=== PATIENT | male | born 1955 | race Caucasian/White ===

== ENCOUNTER 2018-03-11 12:44 | Emergency (ER) | payer MEDICARE, SELFPAY ==
[2018-03-11 12:45] VITALS: BP 136/74; PULSE 103; RESP 16; TEMP 37.7; O2SAT 95; BMI 23.3
[2018-03-11 14:04] LABS: Mucous, Urine 0 SEEN /hpf (<or=2+)
[2018-03-11 14:05] LABS: Color, Urine Yellow (Yellow); Glucose, Dipstick Normal (Normal); Leukocyte Esterase-Dipstick 500 /ul (Negative); Nitrite-Dipstick Negative (Negative); Occult Blood-Urine 25 /ul (Negative); Protein-Dipstick 30 mg/dl (Negative); Specific Gravity, Urine 1.015 (1.002-1.030); Urine Bilirubin Dipstick Negative (Negative); Urine Clarity Sl. Cloudy (Clear); Urine Urobilinogen 1 mg/dl (Normal); Urine pH 6.5 (5.0 - 8.0)
[2018-03-11 14:07] LABS: Ketone-Dipstick 150 mg/dl (Negative)
[2018-03-11 14:15] LABS: Bacteria RARE /hpf (None Seen); Red Blood Cells-Urine 0-5 SEEN /hpf (0-5); Squamous Epithelial Cells - UA 0-5 SEEN /hpf (0-5); White Blood Cells 25-50 SEEN /hpf (0-5)
--- NOTE | 2018-03-11 14:26 | ED.VISSUMM ---
- ER Visit Summary Date of Service: 03/11/18 Chief Complaint: [Dysuria] History of Present Illness: The patient is a 62 M presents to the emergency department with complaint of dysuria that started 2 days ago. Patient complains of frequent urination, chills, subjective fever, and mild back discomfort. Patient's had no vomiting or diarrhea. Patient states he had similar symptoms a few years ago when a friend of his gave him some antibiotics and the symptoms resolved.] Physical Examination: [HEENT-PERRLA, EOMI. Cranial nerves II through XII grossly intact. TMs clear. Mucous membranes moist. No adenopathy. Cardiovascular-regular rate and rhythm without murmur or ectopy Lungs-clear to auscultation, chest wall stable without crepitus or subcu emphysema Abdomen-normoactive bowel sounds, soft. Patient has some mild suprapubic discomfort. No rebound, rigidity, or perineal signs. Extremities-intact ?4, normal range of motion, normal pulses, atraumatic] Test Results: [Bladder scan only showed about 30 cc of urine. Patient also had a urinalysis that was positive for 500 leukocyte esterase and 25-50 WBCs. Negative for nitrites.] Emergency Department Course and Treatment: [Urine culture was sent and patient started on Bactrim DS.] Treatment Plan: [Will be treated with Bactrim and Pyridium and will be referred to urology agricultural extension agent.] Disposition: [Discharged home in stable condition]. Patient advised to return if worsening pain, vomiting, dehydration, or condition should worsen in any way. Impression: [Urinary tract infection] This note was generated with [employer] dictation software. It may contain incorrect words, spelling, and punctuation that were not noted in review of the chart prior to signing ED Disposition - Plan for ED Patient: Chief Complaint: Complaint Referrals: Care Physician,No Primary [Primary Care Provider] -
--- NOTE | 2018-03-11 14:29 | ED.DCSUM_ITS ---
- ER Visit Summary Date of Service: 03/11/18 Chief Complaint: [Dysuria] History of Present Illness: The patient is a 62 M presents to the emergency department with complaint of dysuria that started 2 days ago. Patient complains of frequent urination, chills, subjective fever, and mild back discomfort. Patient's had no vomiting or diarrhea. Patient states he had similar symptoms a few years ago when a friend of his gave him some antibiotics and the symptoms resolved.] Physical Examination: [HEENT-PERRLA, EOMI. Cranial nerves II through XII grossly intact. TMs clear. Mucous membranes moist. No adenopathy. Cardiovascular-regular rate and rhythm without murmur or ectopy Lungs-clear to auscultation, chest wall stable without crepitus or subcu emphysema Abdomen-normoactive bowel sounds, soft. Patient has some mild suprapubic discomfort. No rebound, rigidity, or perineal signs. Extremities-intact ?4, normal range of motion, normal pulses, atraumatic] Test Results: [Bladder scan only showed about 30 cc of urine. Patient also had a urinalysis that was positive for 500 leukocyte esterase and 25-50 WBCs. Negative for nitrites.] Emergency Department Course and Treatment: [Urine culture was sent and patient started on Bactrim DS.] Treatment Plan: [Will be treated with Bactrim and Pyridium and will be referred to urology director of infection prevention.] Disposition: [Discharged home in stable condition]. Patient advised to return if worsening pain, vomiting, dehydration, or condition should worsen in any way. Impression: [Urinary tract infection] This note was generated with [employer] dictation software. It may contain incorrect words, spelling, and punctuation that were not noted in review of the chart prior to signing ED Disposition - Plan for ED Patient: Chief Complaint: Complaint Referrals: Care Physician,No Primary [Primary Care Provider] -
--- NOTE | 2018-03-11 14:29 | ED.DEP ---
ED Disposition - Plan for ED Patient: Chief Complaint: Complaint Instructions: ED UTI Cystitis Male Prescriptions: Smz/Tmp Ds [Bactrim Ds] 1 tab PO BID #14 tab Phenazopyridine HCl [Pyridium] 200 mg PO TID #10 tab Referrals: Care Physician,No Primary [Primary Care Provider] - Isabel Dobbs MD [STAFF PHYSICIAN] - 5-7 Days
[2018-03-11 14:33] VITALS: BP 128/80; PULSE 95; RESP 14; O2SAT 99
[2018-03-11] MEDS: Smz/Tmp Ds Tablet 1 TABLET PO (14:39)
== END 2018-03-11 14:41 | disposition home or self-care (01) ==
LOC: ED 13:23
PROVIDERS: Emergency Provider Emergency Medicine
DX: N30.90 Cystitis, unspecified without hematuria (principal); B96.89 Other specified bacterial agents as the cause of diseases classified elsewhere; I10 Essential (primary) hypertension; Z72.0 Tobacco use
CPT/HCPCS: 81001; 87086; 87088; 99283

== ENCOUNTER → 2018-04-16 09:19 | Outpatient (CLI) | payer BC, SELFPAY ==
[2018-04-16 12:13] LABS: Hematocrit 36.7 % (40-54); Hemoglobin 11.6 g/dl (13.0-16.5); Mean Corp Hgb Conc 31.6 g/gl (32-36); Mean Corpuscular Hgb 28.2 pg (27.0-32.0); Mean Corpuscular Volume 89.1 fL (80-94); Mean Platelet Vol. 11.2 fl (6.2-12.0); Platelet Count 162 K/mm3 (150-450); RBC Distribution Width CV 15.4 % (11.6-14.6); RBC Distribution Width SD 49.9 fl (35.1-43.9); Red Blood Count 4.12 M/mm3 (4.6-6.2); White Blood Count 7.5 K/mm3 (4.4-11.0)
[2018-04-16 12:37] LABS: Phenytoin (Dilantin) Level 9.5 mL (10.0-20.0)
[2018-04-16 12:43] LABS: Scan Indicated on CBC? Y/N NO
[2018-04-16 12:49] LABS: ALB/GLOB Ratio 1.1 RATIO (0.9-2.4); AST(SGOT) 13 U/L (15-37); Alanine Aminotransfer ALT/SGPT 22 U/L (16-61); Albumin, Serum 3.6 g/dL (3.2-5.0); Alkaline Phosphatase 86 U/L (45-117); Anion Gap 12 (5-15); BUN 14 mg/dL (7-18); BUN/Creat Ratio 16.2 RATIO (10-20); Calcium,Total 8.3 mg/dL (8.5-10.1); Chloride 106 mmol/L (98-107); Cholesterol 194 mg/dL (200); Creatinine, Serum 0.86 mg/dL (0.70-1.30); EST Glomerular Filtration Rate 95 mL/min (>60); Est Glom Filt Rate - Afr Amer 115 mL/min (>60); Globulin 3.3 g/dL (2.2-4.2); Glucose 89 mg/dL (74-106); High Density Lipoprotein 70 mg/dL; Potassium 3.7 mmol/L (3.5-5.1); Protein, Total 6.9 g/dL (6.4-8.2); Sodium Level 142 mmol/L (136-145); Thyroid Stim Hormone (TSH) 0.72 uIU/mL (0.358-3.74); Triglycerides 56 mg/dL; Very Low Density Lipoprotein 11 mg/dL (5-40)
== END ==
PROVIDERS: Family Provider Family Medicine; PCP Family Medicine; Visit Provider Family Medicine
DX: R06.02 Shortness of breath (principal); I10 Essential (primary) hypertension; R26.81 Unsteadiness on feet; R56.9 Unspecified convulsions
CPT/HCPCS: 36415; 71046; 80053; 80061; 80185; 84443; 85027

== ENCOUNTER → 2018-04-30 12:17 | Outpatient (CLI) | payer MEDICARE, SELFPAY ==
--- NOTE | 2018-04-30 12:18 | RAD_ITS ---
STUDY: X-RAY - RIGHT KNEE REASON FOR EXAM: Male, 62 years old. Right knee pain TECHNIQUE: 4 view(s) of the knee. Including weight-bearing views COMPARISON: None. FINDINGS: Normal visualized distal femur. Normal visualized proximal tibia and fibula. Normal proximal tibiofibular articulation. Normal medial femorotibial compartment. Normal lateral femorotibial compartment. Normal patellofemoral articulation. Joint spaces appear maintained. No significant effusion The soft tissue structures are unremarkable. RAD/Knee 4 or More Views IMPRESSION: No significant degenerative change or joint space height loss Electronically Signed: Irvin Cat DO at 8:02 EDT Tel , Service support ,
== END ==
PROVIDERS: Family Provider Family Medicine; PCP Family Medicine; Visit Provider Family Medicine
DX: M25.561 Pain in right knee (principal)
CPT/HCPCS: 73564

== ENCOUNTER → 2018-09-16 11:34 | Outpatient (CLI) | payer MEDICARE, SELFPAY ==
[2018-09-16 13:16] LABS: Phenytoin (Dilantin) Level 7.5 mL (10.0-20.0)
[2018-09-16 13:18] LABS: Anion Gap 12 (5-15); BUN 26 mg/dL (7-18); BUN/Creat Ratio 23.2 RATIO (10-20); Calcium,Total 8.7 mg/dL (8.5-10.1); Chloride 108 mmol/L (98-107); Creatinine, Serum 1.12 mg/dL (0.70-1.30); EST Glomerular Filtration Rate 70 mL/min (>60); Est Glom Filt Rate - Afr Amer 85 mL/min (>60); Glucose 84 mg/dL (74-106); Sodium Level 139 mmol/L (136-145)
== END ==
PROVIDERS: Family Provider Family Medicine; PCP Family Medicine; Visit Provider Family Medicine
DX: I10 Essential (primary) hypertension (principal); R56.9 Unspecified convulsions
CPT/HCPCS: 36415; 80048; 80185

== ENCOUNTER → 2019-01-27 16:38 | Outpatient (CLI) | payer MEDICARE, SELFPAY ==
--- NOTE | 2019-01-27 16:48 | CT_ITS ---
STUDY: LOW DOSE CT LUNG CANCER SCREENING REASON FOR EXAM: Male, 63 years old. Long history of smoking. RADIATION DOSAGE (If Supplied By Facility): CTDIvol = ( 4.02 ) mGy, DLP = ( 138.43 ) mGycm TECHNIQUE: No contrast was administered. Low dose technique was utilized (average mAS-38 and kVp 120). 1.25 mm axial source images with a slice interval of 1.25-mm were reconstructed in lung windows. 2.5 mm axial source images with a slice interval of 2.5-mm were reconstructed in lung windows. 5.0 mm axial source images with a slice interval of 5.0-mm were reconstructed in soft tissue windows. Nodule measured using lung windows on PACS and/or independent workstation with automated measurement of minimum and maximum diameter. Nodule measurement reported as average diameter rounded to the nearest whole number. Growth is defined as an increase ins size of greater than 1.5 mm. COMPARISON: None. NODULES: There is hyperinflation in both lungs suggesting COPD. Emphysema is noted in both lungs predominantly centrilobular type more prominent in the upper lobes. There is no demonstrated pleural abnormality. Normal heart and pericardium. Normal mediastinum. Normal hilar regions. Normal unenhanced pulmonary arteries. Ascending aorta aneurysm measures 4.7 cm. There are multi-level degenerative changes and demineralization of the thoracic spine. There is no demonstrated abnormality of the visualized upper abdomen. CT/Low Dose CT Lung Screening IMPRESSION: Lung-RADS category 2. COPD and emphysema. Benign findings. Ascending aorta aneurysm measures 4.7 cm. Recommendation: Routine screening CT scan in one year. IMPORTANT NOTES FOR USE: ACR Lung-RADS Version 1.0 Assessment Categories Release Date: December 08, 2013 Category: Coded 0-4 bases on nodule(s) with highest degree of suspicion. Negative screen is defined as categories 1 and 2; a positive screen is defined as categories 3 and 4. Category 3 and 4A nodules that are unchanged on interval CT should be coded as category 2, and individuals returned to screening in 12 months. Category 4X: Category 3 or 4 nodules with additional imaging findings that increase the suspicion of lung cancer, such as spiculation, GGN that doubles in size in 1 year, enlarged lymph notes, etc. Category Modifiers: S (significant finding unrelated to lung cancer) and C (prior history of treated lung cancer) may be added to the 0-4 Lung-RADS Electronically Signed: Mohini Liang, at 8:00 EDT Tel , Service support ,
== END ==
PROVIDERS: Family Provider Family Medicine; PCP Family Medicine; Referring Provider Family Medicine; Visit Provider Family Medicine
DX: Z12.2 Encounter for screening for malignant neoplasm of respiratory organs (principal); Z87.891 Personal history of nicotine dependence
CPT/HCPCS: G0297

== ENCOUNTER → 2019-09-30 11:13 | Outpatient (CLI) | payer MEDICARE, SELFPAY ==
[2019-09-30 12:37] LABS: Erythrocyte Sedimentation Rate 6 mm/hr (0-20)
[2019-09-30 12:40] LABS: Absolute Lymphocyte Count 1.67 X10^3/uL (0.83-4.51); Absolute Neutrophil Count 5.9 X10^3/uL (2.0-7.7); Basophil# 0.05 X10^3/uL; Basophil% 0.6 % (0-1); Eosinophil# 0.23 X10^3/uL; Eosinophils% 2.7 % (0-5); Hematocrit 29.7 % (40-54); Hemoglobin 8.1 g/dL (13.0-16.5); Lymphocyte # 1.67 X10^3/ul (4.0); Lymphocyte % 19.4 % (19-41); Mean Corp Hgb Conc 27.3 g/dL (32-36); Mean Corpuscular Hgb 18.6 pg (27.0-32.0); Mean Corpuscular Volume 68.1 fL (80-94); Mean Platelet Vol. 10.1 fl (6.2-12.0); Monocyte# 0.74 X10^3/uL; Monocyte% 8.6 % (0-10); NRBC Flagged by Analyzer 0 % (0-5); Neutrophil # 5.86 X10^3/uL (2.7-7.7); Neutrophil % 68.2 % (47-70); POSITIVE MORPHOLOGY YES; Platelet Count 224 K/mm3 (150-450); RBC Distribution Width CV 22.7 % (11.6-14.6); RBC Distribution Width SD 53.5 fl (35.1-43.9); Red Blood Count 4.36 M/mm3 (4.6-6.2); White Blood Count 8.6 K/mm3 (4.4-11.0)
[2019-09-30 12:45] LABS: Differential Indicated SCAN CRITERIA MET
[2019-09-30 13:08] LABS: Phenytoin (Dilantin) Level 6.9 mL (10.0-20.0)
[2019-09-30 13:13] LABS: Differential Comment SCANNED
[2019-09-30 13:14] LABS: Anisocytosis 1+; Hypochromasia 1+
[2019-09-30 13:16] LABS: Vitamin B12 340 pg/mL (211-911)
[2019-09-30 13:20] LABS: ALB/GLOB Ratio 1.1 RATIO (0.9-2.4); AST(SGOT) 13 U/L (15-37); Alanine Aminotransfer ALT/SGPT 21 U/L (16-61); Albumin, Serum 3.7 g/dL (3.2-5.0); Alkaline Phosphatase 77 U/L (45-117); Anion Gap 4 (5-15); BUN 16 mg/dL (7-18); BUN/Creat Ratio 17.4 RATIO (10-20); Calcium,Total 8.5 mg/dL (8.5-10.1); Chloride 109 mmol/L (98-107); Cholesterol 208 mg/dL (200); Creatinine, Serum 0.92 mg/dL (0.70-1.30); EST Glomerular Filtration Rate 88 mL/min (>60); Est Glom Filt Rate - Afr Amer 106 mL/min (>60); Ferritin 5 ng/mL (26-388); Globulin 3.5 g/dL (2.2-4.2); Glucose 83 mg/dL (74-106); High Density Lipoprotein 74 mg/dL; Magnesium 2.2 mg/dL (1.6-2.6); Potassium 3.8 mmol/L (3.5-5.1); Protein, Total 7.2 g/dL (6.4-8.2); Sodium Level 140 mmol/L (136-145); Thyroid Stim Hormone (TSH) 1.05 uIU/mL (0.358-3.74); Triglycerides 62 mg/dL; Very Low Density Lipoprotein 12 mg/dL (5-40)
== END ==
PROVIDERS: PCP Family Medicine; Visit Provider Family Medicine
DX: G62.9 Polyneuropathy, unspecified (principal); E78.5 Hyperlipidemia, unspecified; D64.9 Anemia, unspecified; R56.9 Unspecified convulsions
CPT/HCPCS: 80053; 80061; 80185; 82607; 82728; 82746; 83735; 84443; 85025; 85652

== ENCOUNTER → 2024-10-01 | Outpatient (CLI) | payer MEDICARE, SELFPAY ==
--- NOTE | 2024-10-01 10:05 | US_ITS ---
PROCEDURE: TESTICULAR WITH ARTERIAL FLOW REASON FOR EXAM: 3 day history of right testicular pain. TECHNIQUE: Connelly scale imaging of the scrotal contents. COMPARISON: None. FINDINGS: RIGHT testicle: 3.9 cm x 3.6 cm x 3 cm There is a 2 cm x 2.8 cm 2.6 cm heterogeneous mass in the inferior aspect of the right testicle with a vascularity. A neoplastic process should be ruled out. Right epididymis: It measures 9 mm x 13 mm x 12 mm. Small right hydrocele. There is good flow to the testicle. LEFT testicle: 5.1 cm x 2.6 cm x 2.6 cm Homogeneous echotexture. No intratesticular mass. Left epididymis: It measures 1.2 cm x 1.4 cm x 1.4 cm Other findings: No hydrocele or large varicocele. Good flow to the testicle. US/Testicular with Arterial Flow IMPRESSION: 2 cm x 2.8 cm x 2.6 cm mass in the lower aspect of the right testicle with incr eased vascularity. Small right hydrocele. Reading Location: [place] [id number]
== END | disposition home or self-care (01) ==
LOC: US 10:02
PROVIDERS: PCP Family Medicine; Referring Provider Family Medicine; Visit Provider Family Medicine
DX: N50.811 Right testicular pain (principal)
CPT/HCPCS: 76870; 93976

== ENCOUNTER → 2024-10-31 | Outpatient (CLI) | payer MEDICARE, SELFPAY ==
--- NOTE | 2024-10-31 10:05 | RAD_ITS ---
PROCEDURE: ESOPHAGUS DUAL CONTRAST 10/31/2024 REASON FOR EXAM: DYSPHAGIA, LOWER ESOPHAGUS BY REPORT. TECHNIQUE: FLUOROSCOPIC TIME: 48 seconds. FLUOROGRAPHIC IMAGES: 79 COMPARISON: None FINDINGS: The patient ingested barium. Fluoroscopic imaging of the esophagus was obtained. No evidence of esophageal obstruction. No mass lesion is seen. No evidence of gastroesophageal reflux. There is evidence of an 8.5 mm Zenker's diverticulum at the origin of the esophagus. The patient ingested a 12 mm tablet the barium without any difficulty. RAD/Esophagus Dual Contrast IMPRESSION: No evidence of gastroesophageal reflux. Findings suggestive of an 8.5 mm Zenker's diverticulum at the origin of the eso phagus. Reading Location: [facility]
== END | disposition home or self-care (01) ==
LOC: RAD 10:00
PROVIDERS: PCP Family Medicine; Referring Provider Family Medicine; Visit Provider Family Medicine
DX: R13.10 Dysphagia, unspecified (principal)
CPT/HCPCS: 74221

== ENCOUNTER → 2024-11-13 | Outpatient (CLI) | payer MEDICARE, SELFPAY ==
[2024-11-13 15:12] LABS: Absolute Lymphocyte Count 1.93 X10^3/uL (0.83-4.51); Absolute Neutrophil Count 6.5 X10^3/uL (2.0-7.7); Basophil# 0.07 X10^3/uL; Basophil% 0.7 % (0-1); Eosinophil# 0.43 X10^3/uL; Eosinophils% 4.3 % (0-5); Hematocrit 40.4 % (40-54); Hemoglobin 12.8 g/dL (13.0-16.5); Lymphocyte # 1.93 X10^3/ul (0.83-4.51); Lymphocyte % 19.5 % (19-41); Mean Corp Hgb Conc 31.7 g/dL (32-36); Mean Corpuscular Hgb 26.6 pg (27.0-32.0); Mean Corpuscular Volume 83.8 fL (80-94); Monocyte# 0.97 X10^3/uL; Monocyte% 9.8 % (0-10); NRBC Flagged by Analyzer 0 % (0-5); Neutrophil # 6.48 X10^3/uL (2.7-7.7); Neutrophil % 65.3 % (47-70); Platelet Count 177 K/mm3 (150-450); RBC Distribution Width CV 17.2 % (11.6-14.6); RBC Distribution Width SD 52.5 fl (35.1-43.9); Red Blood Count 4.82 M/mm3 (4.6-6.2); White Blood Count 9.9 K/mm3 (4.4-11.0)
[2024-11-13 16:25] LABS: ALB/GLOB Ratio 1.7 RATIO (0.9-2.4); AST(SGOT) 18 U/L (<=37); Alanine Aminotransfer ALT/SGPT 21 U/L (<=46); Albumin, Serum 4.4 g/dL (3.4-4.8); Alkaline Phosphatase 62 U/L (40-129); Anion Gap 11 (5-15); BUN 12 mg/dL (4-19); BUN/Creat Ratio 11.9 RATIO (10-20); Calcium,Total 9.2 mg/dL (7.6-11.0); Carbon Dioxide 25.4 mmol/L (21.0-32.0); Chloride 104 mmol/L (98-108); Creatinine, Serum 0.99 mg/dL (0.70-1.20); EST Glomerular Filtration Rate 82 (>60); Globulin 2.6 g/dL (2.2-4.2); Glucose 92 mg/dL (70-99); Sodium Level 140 mmol/L (133-145); Total Bilirubin 0.43 mg/dL (0.00-1.30)
== END | disposition home or self-care (01) ==
LOC: LAB 14:44
PROVIDERS: PCP Family Medicine; Referring Provider Nurse Practitioner Acute Care; Visit Provider Nurse Practitioner Acute Care
DX: R13.10 Dysphagia, unspecified (principal); R10.11 Right upper quadrant pain; R10.2 Pelvic and perineal pain; R31.9 Hematuria, unspecified
CPT/HCPCS: 36415; 80053; 85025

== ENCOUNTER → 2024-12-22 | Outpatient (CLI) | payer MEDICARE, SELFPAY ==
--- NOTE | 2024-12-22 16:45 | CT_ITS ---
PROCEDURE: ABDOMEN/PELVIS WITH CONTRAST 12/22/2024 REASON FOR EXAM: RUQ AND PELVIC PAIN Prosthetic enlargement. TECHNIQUE: Abdomen and pelvis CT with intravenous contrast. Coronal and Sagittal reconstruction series were provided. PATIENT PREPARATION: Per protocol ORAL CONTRAST TYPE: None. CONTRAST: Isovue 370 VOLUME: 100 mL One or more dose reduction techniques were used (e.g., Automated exposure control, adjustment of the mA and/or kV according to patient size, use of iterative reconstruction technique. RADIATION DOSE SUMMARY: CTDlvol: 18 mGy DLP: 2079.56 mGycm COMPARISON: None FINDINGS: Lung bases: Mild dependent atelectasis. Coronary artery calcification. Liver: 1 cm cyst in the left lobe of the liver. Subcentimeter cyst in the lateral aspect of the left lobe of the liver. Gallbladder: Unremarkable Spleen: Normal size. Pancreas: Normal size without evidence of mass surrounding inflammation or ductal dilation. Adrenals: Unremarkable Kidneys: 3.2 cm cyst in the upper medial pole of the right kidney. Bladder: Mild bladder distention. Bowel: Colonic diverticulosis without diverticulitis. Appendix: The appendix is not identified. There is no inflammatory process identified in the right lower quadrant to suggest appendicitis. Lymph nodes: Unremarkable. Vasculature: Mild diffuse atherosclerotic calcifications are noted. Prominence of the inferior vena cava and both common iliac veins. Peritoneum / Retroperitoneum: Unremarkable Bones: Degenerative changes of the spine. CT/Abdomen/Pelvis WITH Contrast IMPRESSION: Small hepatic cysts in the left lobe of the liver. Small right renal cyst. Sigmoid diverticulosis. Reading Location: [facility]
== END | disposition home or self-care (01) ==
LOC: CT 16:42
PROVIDERS: PCP Family Medicine; Referring Provider Nurse Practitioner Acute Care; Visit Provider Nurse Practitioner Acute Care
DX: R13.10 Dysphagia, unspecified (principal); R10.11 Right upper quadrant pain; R10.2 Pelvic and perineal pain
CPT/HCPCS: 74177; Q9967

== ENCOUNTER → 2024-12-25 | Outpatient (CLI) | payer MEDICARE, SELFPAY ==
[2024-12-25 12:12] LABS: PSA,Total - Annual Screen 1.64 ng/mL (0.02-4.00)
== END | disposition home or self-care (01) ==
LOC: LAB 10:49
PROVIDERS: PCP Family Medicine; Referring Provider Urology; Visit Provider Urology
DX: Z12.5 Encounter for screening for malignant neoplasm of prostate (principal)
CPT/HCPCS: 36415; 84153; G0103

== ENCOUNTER → 2025-01-08 | Outpatient (CLI) | payer MEDICARE, SELFPAY ==
--- NOTE | 2025-01-08 14:11 | RAD_ITS ---
PROCEDURE: FOOT MIN 3 VIEWS 01/08/2025 REASON FOR EXAM: R FOOT. PAIN OVER 3RD-5TH MT HEADS. TECHNIQUE: 3 views of the right foot. COMPARISON: None available FINDINGS: No fracture or dislocation. The joint spaces appear within limits. No osseous lesion identified. Soft tissues appear within limits. RAD/Foot min 3 Views IMPRESSION: No fracture or dislocation. If symptoms persist, may follow-up with repeat fabián ging in 7-10 days as warranted. Reading Location: [id number]
== END | disposition home or self-care (01) ==
LOC: MTRAD 14:10
PROVIDERS: PCP Family Medicine; Referring Provider Family Medicine; Visit Provider Family Medicine
DX: M77.41 Metatarsalgia, right foot (principal)
CPT/HCPCS: 73630

== ENCOUNTER 2025-01-29 08:56 | Day surgery (SDC) | payer MEDICARE, SELFPAY ==
--- NOTE | 2025-01-28 16:01 | PAT.ANESEVAL ---
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 When Was Last Pacemaker Check QUESTION #4 FULL TEXT: You/Your Family Experience fever (hyperthermia) with Anesthesia Last Oral Intake Last Oral intake: Last Oral Intake NPO since Meds taken in AM with sips of water? Meds patient instructed to take am of surgery PONV PONV - brooch and bracelet maker: PONV - brooch and bracelet maker Female No 01/28/25 08:16 HX of Motion Sickness No 01/28/25 08:16 HX of N/V After Surgery No 01/28/25 08:16 Non-Smoker Yes 01/28/25 08:16 Duration of Surgery greater No 01/28/25 08:16 than 60 minutes Number of Risk Factors 1 01/28/25 08:16 PONV Score Low Risk 01/28/25 08:16 Height & Weight Height & Weight: Anesthesia: Height & Weight Height 6 ft 3 in 11/13/24 14:04 Respiratory Assessment Respiratory Assessment - brooch and bracelet maker: Respiratory Tract Infection Hx - brooch and bracelet maker Hx Respiratory Tract Infection No 01/28/25 08:16 STOP Sleep Apnea STOP Sleep Apnea - brooch and bracelet maker: STOP Sleep Apnea - brooch and bracelet maker Hx Hypertension Yes 01/28/25 08:16 Hx Sleep Apnea No 01/28/25 08:16 CPAP BIPAP Do you snore loudly (louder No 01/28/25 08:16 than talking or can be heard Do you often feel tired/ No 01/28/25 08:16 fatigued/ sleepy during daytime? Has anyone observed you stop No 01/28/25 08:16 breathing during sleep? STOP Results Negative 01/28/25 08:16 QUESTION #5 FULL TEXT : Do you snore loudly (louder than talking or can be heard through closed doors)? 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 Specify any problems Hx of Preganancy in last 3 N/A 01/28/25 08:16 Months Nurse Filling Out [facility]fusion [facility] 01/28/25 08:16 & Questions: Date: 01/28/25 01/28/25 08:16 Time: 08:33 01/28/25 08:16 Patient unable to answer at this time (ie. confused, unrespo /Reproduction History /Reproductive History - brooch and bracelet maker: /Reproductive Hx- brooch and bracelet maker Hx Now Gestational Age (in weeks): EDC: Hx Hx Para Hx Section SAB PFSH Medical History (Updated 01/28/25 @ 10:31 by Wanda Garcia) AAA (abdominal aortic aneurysm) Wears hearing aid Wears dentures Arthritis Prostate disease Low iron Easy bruising Syncope Seizures Difficulty swallowing Dietary restriction Former smoker COPD (chronic obstructive pulmonary disease) Shortness of breath on exertion Leg cramps History of edema Pain in right testicle A-fib Home Medications ?Medication ?Instructions ?Recorded ?Last Taken ?Type apixaban 5 mg tablet (Eliquis) 5 mg PO BID 11/13/24 01/23/25 History levetiracetam 500 mg tablet 500 mg PO BID 11/13/24 Unknown History lisinopril 20 1 tab PO QDAY 11/13/24 Unknown History mg-hydrochlorothiazide 12.5 mg tablet metoprolol tartrate 50 mg tablet 50 mg PO BID 11/13/24 Unknown History peg 3350-sod sulf,[id number]-[id number]-xuf See Rx Instructions PO .COMPLEX #2 11/13/24 Unknown Rx 178.7-7.3-0.5-1.12-0.9 gram oral mL soln (Suflave) umeclidinium 62.5 mcg-vilanterol 1 inh inhalation Q24H 11/13/24 Unknown History 25 mcg/actuation powdr for inhalation (Anoro Ellipta) acetaminophen 650 mg 1,300 mg PO Q8H PRN pain 01/28/25 Unknown History tablet,extended release (8 Hour Pain Reliever) diphenhydramine 25 1 tab PO QHS PRN sedation 01/28/25 Unknown History mg-acetaminophen 500 mg tablet (Acetadryl) Allergy/AdvReac Type Severity Reaction Status Date / Time nicotine (From Nicoderm CQ) Allergy Mild states Verified 01/28/25 08:08 made him very sick Surgical History (Updated 01/28/25 @ 08:30 by Wanda Garcia) History of bilateral cataract extraction History of cardiac catheterization History of colonoscopy Social History Smoking Status: Former smoker Audit: Pertinent Findings Pertinent Findings EKG Perinent findings: June 03, 2024. Sinus bradycardia at 56 bpm. Left bundle branch block Consult pertinent findings: April 25, 2019. Dr. Miranda (cardiothoracic) patient with ascending aortic ectasia of about 4.5 cm. Follow-up by CT scan and ultrasound of the abdominal aorta in 1 year. June 03, 2024. Dr. Shi. (Primary care) 1. AAA-last evaluated by Dr. Miranda in 2019. 2. Hypertension-will get updated labs and increase lisinopril/hydrochlorothiazide. 3. COPD?doing well on inhaler. 4. Seizures no seizures in greater than 5 years. 5. A-fib?stay on Eliquis. Recommendation Anesthesia Recommendation Anesthesia recommendation: OPTIMIZED for anesthesia
[2025-01-29] VITALS (8 sets, daily range): BP systolic 101–163; BP diastolic 67–77; PULSE 49–54; RESP 16–18; TEMP 36.2–36.8; O2SAT 97–98; BMI 24.0
[2025-01-29] MEDS: Lactated Ringers 1,000 ML 15 ML IV (09:33)
--- NOTE | 2025-01-29 09:41 | PCM.HP.STD ---
HPI - General General Date of Admission: 01/29/25 Date of Service: 01/29/25 HPI Narrative JUAN PIMENTEL, is a 69 M who presents Chief Complaint: Trouble swallowing Details: JUAN PIMENTEL, is a 69 M who presents to the office today for - denies any lung or kidney disease - A. Fib - Eliquis - ambulates with a walker - cousin with colon cancer - Urology appt on 11/27 - US of the testicle Esophagram 10/31/2024 revealed 8.5mm zenkers diverticulum - reports when he is eating he has to quit because food gets stuck and will belch it back up - also has trouble with liquids - lower esophageal dysphagia x2 years - denies any HB - denies any N/V - denies any coughing with swallowing - c/o weight gain NOT loss - gain of 15-20lbs in the past 6 months - he reports a h/o colonoscopy 2021 - 6 polyps per patient - Cologuard per patient was POSITIVE yesterday - denies any blood in stools - states he strained his testicles with the last snow storm 2 months ago - he is scheduled to see urology for hematuria - nothing but blood with ejaculation - c/o pelvic abdominal pain - RUQ pain and lower mid pelvic pain with palpation PFSH Medical History AAA (abdominal aortic aneurysm) Wears hearing aid Wears dentures Arthritis Prostate disease Low iron Easy bruising Syncope Seizures Difficulty swallowing Dietary restriction Former smoker COPD (chronic obstructive pulmonary disease) Shortness of breath on exertion Leg cramps History of edema Pain in right testicle A-fib Home Medications ?Medication ?Instructions ?Recorded ?Last Taken ?Type apixaban 5 mg tablet (Eliquis) 5 mg PO BID 11/13/24 01/22/25 History levetiracetam 500 mg tablet 500 mg PO BID 11/13/24 01/29/25 History lisinopril 20 1 tab PO QDAY 11/13/24 Unknown History mg-hydrochlorothiazide 12.5 mg tablet metoprolol tartrate 50 mg tablet 50 mg PO BID 11/13/24 01/29/25 History peg 3350-sod sulf,[id number]-kpj-fqs See Rx Instructions PO .COMPLEX #2 11/13/24 Unknown Rx 178.7-7.3-0.5-1.12-0.9 gram oral mL soln (Suflave) umeclidinium 62.5 mcg-vilanterol 1 inh inhalation Q24H 11/13/24 Unknown History 25 mcg/actuation powdr for inhalation (Anoro Ellipta) acetaminophen 650 mg 1,300 mg PO Q8H PRN pain 01/28/25 Unknown History tablet,extended release (8 Hour Pain Reliever) diphenhydramine 25 1 tab PO QHS PRN sedation 01/28/25 Unknown History mg-acetaminophen 500 mg tablet (Acetadryl) Allergy/AdvReac Type Severity Reaction Status Date / Time nicotine (From HDF) Allergy Mild states Verified 01/29/25 09:20 made him very sick Surgical History History of bilateral cataract extraction History of cardiac catheterization History of colonoscopy Social History Smoking Status: Former smoker ROS Constitutional Constitutional: Denies fatigue, fever(s), poor appetite, weight gain or weight loss Gastrointestinal Gastrointestinal: Denies belching, bloating, change in bowel habits, change in stool character, chewing difficulty, coffee ground emesis, constipation, cramping, diarrhea, dyspepsia, dysphagia, early satiety, excessive flatus, fecal incontinence, heartburn, hematemesis, hematochezia, hemorrhoids, loose stools, melena, nausea, odynophagia, rectal bleeding, tenesmus, vomiting or weight changes Vital Signs Vital Signs Vital Signs: 01/29/25 09:25 01/29/25 09:25 Temperature 98.3 F Temperature Source Temporal Pulse Rate 49 L Respiratory Rate 18 Respiratory Pattern Normal Blood Pressure 163/70 H Blood Pressure Mean 101 Blood Pressure Source Monitor Blood Pressure Position Semi-Fowlers Blood Pressure Location Left Arm Pulse Ox 97 Oxygen Delivery Method Room Air Weight Weight: 192 lb 10.944 oz Body Mass Index (BMI) 24.0 Physical Exam Const alert, oriented x3, no apparent distress and healthy appearing General Appearance: cooperative GI normal to inspection, nondistended, normoactive bowel sounds, soft to palpation, non-tender and non-distended Percussion: normal to percussion Rectal Exam: deferred Assessment & Plan Assessment/Plan (1) Dysphagia: (2) Pelvic pain: (3) RUQ pain: PLAN: Assessment and Plan Assessment and Plan (1) Dysphagia: Status: Acute (2) RUQ pain: Status: Acute (3) Pelvic pain: Status: Acute Orders: Orders CBC W/Diff, Automated 11/13/24 R10.11 - Right upper quadrant pain, R10.2 - Pelvic and perineal pain, R13.10 - Dysphagia, unspecified, R31.9 - Hematuria, unspecified Comprehensive Metabolic Profil 11/13/24 R10.11 - Right upper quadrant pain, R10.2 - Pelvic and perineal pain, R13.10 - Dysphagia, unspecified Abdomen/Pelvis WITH Contrast 11/13/24 R10.11 - Right upper quadrant pain, R10.2 - Pelvic and perineal pain, R13.10 - Dysphagia, unspecified Medications: New peg 3350-sod sulf,lujh-cqm-oxy 178.7-7.3-0.5 gram (Suflave) take as directed for split dose bowel prep 2 mL 0RF ondansetron HCl take two tablets PO two hours prior to start of bowel prep and one every 4 hours as needed for N/V 4 mg PO Q8H 5 tabs 0RF pantoprazole take 1 tablet 30 minutes before breakfast every morning 40 mg PO QDAY 90 tabs 1RF Plan 69-year-old male presents for initial consultation with complaints of lower esophageal dysphagia for 2 years. He experiences frequent episodes of dysphagia with solids and liquids, often stopping a meal due to sensation of esophageal retention with regurgitation of food. He denies any heartburn, nausea or vomiting and reports a weight gain of 15 to 20 pounds in the past 6 months. He reports a Cologuard was recently positive with a history of colonoscopy revealing 6 polyps in 2021. He denies any change in bowel habits or blood in stools. Abdominal exam is remarkable for RUQ and lower mid abdominal pain with palpation. He is scheduled to see urology for complaints of testicular strain, hematuria and hematospermia post fall 2 months ago. His past medical history significant for A-fib on Eliquis. I have started him on pantoprazole once daily. He will complete labs and abdominal CT and proceed with bidirectional endoscopies. Note: [employer] speech recognition coal unloader software was used to create portions of this document. Sound-alike and misspelled words, as well as other coal unloader errors may be contained in the documentation. Patient Instructions: Smoking cessation recommended - https://www.cdc.gov/tobacco/about/how-to-quit.html Nathaniel & MARIA FERNANDA - Latasha
--- NOTE | 2025-01-29 09:42 | PCM.PRE.AN2 ---
ASA Classification* ASA Classification ASA Classification: 3 (Afib, COPD, seizures, HTN, AAA) Assessment & Plan Anesthesia* Anesthesia Assessment Anesthesia Assessment: Discussed sedation and/or anesthesia options, risks, benefits, and alternatives with patient/parents/legal guardian/POA. Questions invited. The patient/parents/legal guardian/POA seems to understand and agrees to proceed with anesthesia plan. Reviewed the physical assessment, medical history, allergy history and patient home medications list prior to surgery/procedure/anesthetic and documented any changes. Performed airway and anesthesia risk assessments. Anesthesia Type Anesthesia Type: MAC History Source History Obtained from:: Patient and Chart Anesthesia Focused Assessment* Temperature: 98.3 F Pulse Rate: 49 Blood Pressure: 163/70 Respiratory Rate: 18 Pulse Ox: 97 Oxygen Delivery Method: Room Air Airway Assessment Mouth opens: >3 cm Mallampati Score: II Teeth Condition: Missing (edentulous) Neck Range of motion (ROM): Full ROM Labs Anesthesia Preop lab: CBC WBC 9.9 K/mm3 (4.4-11.0) 11/13/24 14:50 11/13/24 RBC 4.82 M/mm3 (4.6-6.2) 11/13/24 14:50 11/13/24 Hgb 12.8 g/dL (13.0-16.5) L 11/13/24 14:50 11/13/24 Hct 40.4 % (40-54) 11/13/24 14:50 11/13/24 Plt Count 177 K/mm3 (150-450) 11/13/24 14:50 11/13/24 CHEMISTRY Potassium 4.0 mmol/L (3.3-5.1) 11/13/24 14:50 11/13/24 Sodium 140 mmol/L (133-145) 11/13/24 14:50 11/13/24 Magnesium 2.2 mg/dL (1.6-2.6) 09/30/19 11:16 09/30/19 BUN 12 mg/dL (4-19) 11/13/24 14:50 11/13/24 Creatinine 0.99 mg/dL (0.70-1.20) 11/13/24 14:50 11/13/24 Glucose 92 mg/dL (70-99) 11/13/24 14:50 11/13/24 TSH 1.05 uIU/mL (0.358-3.74) 09/30/19 11:16 09/30/19 COAG Pre-Assessment Diagnosis/Proposed Procedure Planned Operative Procedure(s): EGD, COLONOSCOPY Anesthesia History 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 When Was Last Pacemaker Check QUESTION #4 FULL TEXT: You/Your Family Experience fever (hyperthermia) with Anesthesia Last Oral Intake Last Oral intake: Last Oral Intake NPO since 04:30 01/29/25 09:25 Meds taken in AM with sips of Yes 01/29/25 09:25 water? Meds patient instructed to take am of surgery PONV PONV - mink rancher: PONV - mink rancher Female No 01/28/25 08:16 HX of Motion Sickness No 01/28/25 08:16 HX of N/V After Surgery No 01/28/25 08:16 Non-Smoker Yes 01/28/25 08:16 Duration of Surgery greater No 01/28/25 08:16 than 60 minutes Number of Risk Factors 1 01/28/25 08:16 PONV Score Low Risk 01/28/25 08:16 Height & Weight Height & Weight: Anesthesia: Height & Weight Height 6 ft 3 in 01/29/25 09:25 Weight: 87.4 kg 01/29/25 09:25 Body Mass Index (BMI) 24.0 01/29/25 09:25 Respiratory Assessment Respiratory Assessment - mink rancher: Respiratory Tract Infection Hx - mink rancher Hx Respiratory Tract Infection No 01/28/25 08:16 STOP Sleep Apnea STOP Sleep Apnea - mink rancher: STOP Sleep Apnea - mink rancher Hx Hypertension Yes 01/28/25 08:16 Hx Sleep Apnea No 01/28/25 08:16 CPAP BIPAP Do you snore loudly (louder No 01/28/25 08:16 than talking or can be heard Do you often feel tired/ No 01/28/25 08:16 fatigued/ sleepy during daytime? Has anyone observed you stop No 01/28/25 08:16 breathing during sleep? STOP Results Negative 01/28/25 08:16 QUESTION #5 FULL TEXT : Do you snore loudly (louder than talking or can be heard through closed doors)? 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 Specify any problems Hx of Preganancy in last 3 N/A 01/28/25 08:16 Months Nurse Filling Out Transfusion [facility] 01/28/25 08:16 & Questions: Date: 01/28/25 01/28/25 08:16 Time: 08:33 01/28/25 08:16 Patient unable to answer at this time (ie. confused, unrespo /Reproduction History /Reproductive History - mink rancher: /Reproductive Hx- mink rancher Hx Now Gestational Age (in weeks): EDC: Hx Hx Para Hx Section SAB Active Medications Active Medications: Current Medications Generic Name Dose Route Start Last Admin Trade Name Freq PRN Reason Stop Dose Admin Lactated Ringer's 1,000 mls @ 15 mls/hr 01/29/25 09:15 01/29/25 09:33 IV 15 mls/hr .Q48H MIRANDA Administration PFSH Medical History (Updated 01/28/25 @ 10:31 by Wanda Garcia) AAA (abdominal aortic aneurysm) Wears hearing aid Wears dentures Arthritis Prostate disease Low iron Easy bruising Syncope Seizures Difficulty swallowing Dietary restriction Former smoker COPD (chronic obstructive pulmonary disease) Shortness of breath on exertion Leg cramps History of edema Pain in right testicle A-fib Home Medications ?Medication ?Instructions ?Recorded ?Last Taken ?Type apixaban 5 mg tablet (Eliquis) 5 mg PO BID 11/13/24 01/22/25 History levetiracetam 500 mg tablet 500 mg PO BID 11/13/24 01/29/25 History lisinopril 20 1 tab PO QDAY 11/13/24 Unknown History mg-hydrochlorothiazide 12.5 mg tablet metoprolol tartrate 50 mg tablet 50 mg PO BID 11/13/24 01/29/25 History peg 3350-sod sulf,[id number] See Rx Instructions PO .COMPLEX #2 11/13/24 Unknown Rx 178.7-7.3-0.5-1.12-0.9 gram oral mL soln (Suflave) umeclidinium 62.5 mcg-vilanterol 1 inh inhalation Q24H 11/13/24 Unknown History 25 mcg/actuation powdr for inhalation (Anoro Ellipta) acetaminophen 650 mg 1,300 mg PO Q8H PRN pain 01/28/25 Unknown History tablet,extended release (8 Hour Pain Reliever) diphenhydramine 25 1 tab PO QHS PRN sedation 01/28/25 Unknown History mg-acetaminophen 500 mg tablet (Acetadryl) Allergy/AdvReac Type Severity Reaction Status Date / Time nicotine (From [facility]) Allergy Mild states Verified 01/29/25 09:20 made him very sick Surgical History (Updated 01/28/25 @ 08:30 by Wanda Garcia) History of bilateral cataract extraction History of cardiac catheterization History of colonoscopy Social History Smoking Status: Former smoker Review of Systems (Anesthesia) ROS Narrative System reviewed and no additional complaints, except as documented. Physical Exam Const alert, oriented x3 and average body habitus Resp normal respiratory effort, normal air movement and clear to auscultation bilaterally Cardio regular rate, regular rhythm, no murmurs and diaphoretic
--- NOTE | 2025-01-29 10:00 | EGD_PTH ---
PATIENT: JUAN PIMENTEL LOC: EN U#:[id number] AGE/SX: 69/M ROOM: RE01/29/[address]: Dr. Iker Metz DO : 1955 BED: DIS: 01/29/2025 SPEC #: [id number] RECD: 01/29/25 10:48 STATUS: LOUISA YARY #: [id number] GILBERT: 01/29/25 10:[address]: Iker Metz DEPT: SURGICAL PATHOLOGY RECD BY: Jorge Alberto Chase ENTERED: 01/29/25 12:09 SP TYPE: EGD BIOPSY AFLREDO DR: Dr. David Shi MD Tissues: A - Gastric mucous membrane B - Esophagus, NOS C - Transverse colon D - Sigmoid colon biopsy Procedures: Surgery Specimen Level IV HEADER OPERATION: Colonoscopy, EGD and Gold Probe cautery and biopsy and dilatation PRE-OP DIAGNOSIS: Dysphagia, right upper quadrant pain, pelvic pain TISSUE SUBMITTED: A- Gastric ulcer biopsy, B- Distal esophagus biopsy, C- Transverse colon polyp, D- Sigmoid polyp MICROSCOPIC DIAGNOSIS A. Stomach, ulcer, biopsy: - Antral mucosa with mild chronic inflammation and reactive/reparative changes. - Negative for Helicobacter-like organisms (H&E). B. Distal esophagus, biopsy: - Squamous mucosa with reactive changes. - Columnar mucosa with goblet cell metaplasia - see note. - Negative for dysplasia. Note: : The diagnosis depends on the location of the biopsy and the extent of the mucosal irregularity. If the biopsy originates from the tubular esophagus and the mucosal irregularity extends at least 1 cm above the top of the gastric folds, this represents Nguyen mucosa. If the biopsy originates from the gastric cardia and/or the mucosal irregularity is less than 1 cm in extent, this represents intestinal metaplasia. C. Transverse colon, polyp, biopsy: - Hyperplastic polyp. D. Sigmoid colon, polyp, biopsy: - Tubular adenoma. MICROSCOPIC DESCRIPTION Slides are reviewed. GROSS DESCRIPTION A. Received in fixative is one container labeled with the patient's name and designated Gastric ulcer biopsy. The specimen consists of two irregular fragments of light guzman soft tissue, each measuring 0.4 cm. The specimen is totally submitted in one cassette. B. Received in fixative is one container labeled with the patient's name and designated Distal esophagus biopsy. The specimen consists of five irregular fragments of light guzman soft tissue that in aggregate measure 0.1 to 0.4 cm. The specimen is totally submitted in one cassette. C. Received in fixative is one container labeled with the patient's name and designated Transverse colon polyp. The specimen consists of one irregular fragment of light guzman soft tissue that measures 0.5 cm. The specimen is totally submitted in one cassette. D. Received in fixative is one container labeled with the patient's name and designated Sigmoid polyp. The specimen consists of two irregular fragments of light guzman soft tissue, each measuring 0.3 cm. The specimen is totally submitted in one cassette. SUELLEN/ 01/29/2025 [facility]:[id number] ADDENDUM ADDENDUM ADDENDUM ADDENDUM ADDENDUM ADDENDUM ADDENDUM ADDENDUM ADDENDUM ADDENDUM ADDENDUM ADDENDUM ADDENDUM ADDENDUM 03/16/2025 14:23 ADDENDUM 03/16/2025 14:23 ADDENDUM 03/16/2025 14:23 ADDENDUM 03/16/2025 14:23 ADDENDUM 03/16/2025 14:23 This addendum is added to incorporate an outside pathology consultation report. The case was examined at [facility] and the following diagnosis was rendered. Tissue Cypher Risk Class and Risk Score (B1): RISK CLASS: LOW RISK SCORE: 4.9 5-year probability of progression: 5% Please see complete above mentioned consultation report in EMR
--- NOTE | 2025-01-29 10:33 | PCM.POST.ANE ---
Anesthesia: Postop Eval I Current Vital Signs Temperature: 97.1 F Pulse Rate: 50 Blood Pressure: 101/67 Respiratory Rate: 16 Pulse Ox: 98 Oxygen Delivery Method: Room Air Assessment Airway patent: Yes Spontaneous unlabored respirations: Yes Mental status: Awake and Calm nausea: No Vomiting: No Anesthesia Complication: No Fluid Hydration Crystalloid volume administer (ml): 800 Total IV fluid infused: 800 Progress Note Anesthesia document: Postop Eval 1 completed: Yes
--- NOTE | 2025-01-29 10:44 | OP.CCLET_ITS ---
01/29/2025 Bar Shi [address] [place] [address] Re : Upper GI endoscopy procedure for Demar Menon Dear Dr. Shi This procedure was performed on January. My impressions and recommendations are as follows: Impressions : - LA Grade B reflux esophagitis with no bleeding. Biopsied. Dilated. - Red blood in the gastric body. 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 Treated with a heater probe. - Duodenitis. Biopsied. Recommendations : - Discharge patient to home. - Resume previous diet. - Continue present medications. - Await pathology results. My findings are described in the full procedure note, which is enclosed. If I can be of further assistance, please feel free to contact me at . Sincerely, Iker Metz, 01/29/2025 10:43:55 AM This report has been signed electronically.
--- NOTE | 2025-01-29 10:44 | OP.EGD_ITS ---
Patient Name: Demar Menon Procedure Date: 01/29/2025 9:40 AM Date of : 1955 Age: 69 Procedure: Upper GI endoscopy Indications: Dysphagia Providers: Iker Metz DO Referring MD: Bar Shi Medicines: Monitored Anesthesia Care Patient Profile: This is a 69 year old male. Refer to note in patient chart for documentation of history and physical. Patient has symptoms of acute abdominal cramping and dysphagia with both liquids and solids. Complications: No immediate complications. Procedure: Pre-Anesthesia Assessment: - Prior to the procedure, a History and Physical was performed, and patient medications and allergies were reviewed. The patient is competent. The risks and benefits of the procedure and the sedation options and risks were discussed with the patient. All questions were answered and informed consent was obtained. Patient identification and proposed procedure were verified by the physician in the pre-procedure area. Mental Status Examination: alert and oriented. Airway Examination: normal oropharyngeal airway and neck mobility. Respiratory Examination: clear to auscultation. CV Examination: normal. Prophylactic Antibiotics: The patient does not require prophylactic antibiotics. Prior Anticoagulants: The patient has taken no anticoagulant or antiplatelet agents. ASA Grade Assessment: II - A patient with mild systemic disease. After reviewing the risks and benefits, the patient was deemed in satisfactory condition to undergo the procedure. The anesthesia plan was to use monitored anesthesia care (MAC). Immediately prior to administration of medications, the patient was re-assessed for adequacy to receive sedatives. The heart rate, respiratory rate, oxygen saturations, blood pressure, adequacy of pulmonary ventilation, and response to care were monitored throughout the procedure. The physical status of the patient was re-assessed after the procedure. After obtaining informed consent, the endoscope was passed under direct vision. Throughout the procedure, the patient's blood pressure, pulse, and oxygen saturations were monitored continuously. The pediatric colonoscope was introduced through the mouth, and advanced to the second part of duodenum. The upper GI endoscopy was accomplished without difficulty. The patient tolerated the procedure well. Scope In: 9:54:07 AM Scope Out: 10:04:21 AM Total Procedure Duration Time 0 hours 10 minutes 14 seconds Findings: LA Grade B (one or more mucosal breaks greater than 5 mm, not extending between the tops of two mucosal folds) esophagitis with no bleeding was found 36 to 39 cm from the incisors. Biopsies were taken with a cold forceps for histology. Verification of patient identification for the specimen was done. Estimated blood loss was minimal. A guidewire was placed and the scope was withdrawn. Dilation was performed with a Savary dilator with no resistance at 57 Fr. The dilation site was examined and showed moderate mucosal disruption. Estimated blood loss was minimal. Red blood was found in the gastric body. A single 8 mm angiodysplastic lesion with bleeding was found in the gastric body. Coagulation for hemostasis using heater probe was successful. Estimated blood loss was minimal. Localized mild inflammation characterized by erythema was found in the duodenal bulb and in the second portion of the duodenum. Biopsies were taken with a cold forceps for histology. Verification of patient identification for the specimen was done. Estimated blood loss was minimal. One non-bleeding superficial gastric ulcer [Bleeding Classification] was found in the gastric antrum. The lesion was 6 mm in largest dimension. Impression: - LA Grade B reflux esophagitis with no bleeding. Biopsied. Dilated. - Red blood in the gastric body. 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 Treated with a heater probe. - Duodenitis. Biopsied. Recommendation: - Discharge patient to home. - Resume previous diet. - Continue present medications. - Await pathology results. Procedure Code(s): --- Professional --- 03369, 59, Esophagogastroduodenoscopy, flexible, transoral; with control of bleeding, any method 56405, 51, Esophagogastroduodenoscopy, flexible, transoral; with insertion of guide wire followed by passage of dilator(s) through esophagus over guide wire 34333, 59, Esophagogastroduodenoscopy, flexible, transoral; with biopsy, single or multiple CPT copyright 2021 [employer]. All rights reserved. The codes documented in this report are preliminary and upon canine service teacher review may be revised to meet current compliance requirements. Iker Metz DO 01/29/2025 10:43:55 AM This report has been signed electronically. Number of Addenda: 0 Note Initiated On: 01/29/2025 9:40 AM
--- NOTE | 2025-01-29 10:46 | OP.COLON_ITS ---
Patient Name: Demar Menon Procedure Date: 01/29/2025 10:04 AM Date of : 1955 Age: 69 Procedure: Colonoscopy Indications: Screening for colorectal malignant neoplasm Providers: Iker Metz DO Referring MD: Bar Shi Medicines: Monitored Anesthesia Care Patient Profile: This is a 69 year old male. Refer to note in patient chart for documentation of history and physical. Patient has symptoms of acute abdominal cramping and dysphagia with both liquids and solids. Last Colonoscopy: several years ago. Complications: No immediate complications. Procedure: Pre-Anesthesia Assessment: - Prior to the procedure, a History and Physical was performed, and patient medications and allergies were reviewed. The patient is competent. The risks and benefits of the procedure and the sedation options and risks were discussed with the patient. All questions were answered and informed consent was obtained. Patient identification and proposed procedure were verified by the physician in the pre-procedure area. Mental Status Examination: alert and oriented. Airway Examination: normal oropharyngeal airway and neck mobility. Respiratory Examination: clear to auscultation. CV Examination: normal. Prophylactic Antibiotics: The patient does not require prophylactic antibiotics. Prior Anticoagulants: The patient has taken no anticoagulant or antiplatelet agents. ASA Grade Assessment: II - A patient with mild systemic disease. After reviewing the risks and benefits, the patient was deemed in satisfactory condition to undergo the procedure. The anesthesia plan was to use monitored anesthesia care (MAC). Immediately prior to administration of medications, the patient was re-assessed for adequacy to receive sedatives. The heart rate, respiratory rate, oxygen saturations, blood pressure, adequacy of pulmonary ventilation, and response to care were monitored throughout the procedure. The physical status of the patient was re-assessed after the procedure. After I obtained informed consent, the scope was passed under direct vision. Throughout the procedure, the patient's blood pressure, pulse, and oxygen saturations were monitored continuously. The pediatric colonoscope was introduced through the anus and advanced to the cecum, identified by appendiceal orifice and ileocecal valve. The colonoscopy was performed without difficulty. The patient tolerated the procedure well. The quality of the bowel preparation was adequate. Anatomical landmarks were photographed. Scope In: 10:05:45 AM Scope Withdrawal Time 0 hours 11 minutes 10 seconds Scope Out: 10:23:55 AM Total Procedure Duration Time 0 hours 18 minutes 10 seconds Findings: The perianal and digital rectal examinations were normal. A 5 mm polyp was found in the sigmoid colon. The polyp was sessile. The polyp was removed with a jumbo cold forceps. Resection and retrieval were complete. Verification of patient identification for the specimen was done. Estimated blood loss was minimal. A 2 mm polyp was found in the transverse colon. The polyp was sessile. The polyp was removed with a jumbo cold forceps. Resection and retrieval were complete. Multiple small and large-mouthed diverticula were found in the recto-sigmoid colon, sigmoid colon, descending colon and splenic flexure. Impression: - One 5 mm polyp in the sigmoid colon, removed with a jumbo cold forceps. Resected and retrieved. - One 2 mm polyp in the transverse colon, removed with a jumbo cold forceps. Resected and retrieved. Recommendation: - Await pathology results. - Repeat colonoscopy in 5 years for surveillance. - Continue present medications. Procedure Code(s): --- Professional --- 76177, Colonoscopy, flexible; with biopsy, single or multiple CPT copyright 2021 [employer] [employer]. All rights reserved. The codes documented in this report are preliminary and upon scraper hand review may be revised to meet current compliance requirements. Iker Metz DO 01/29/2025 10:46:20 AM This report has been signed electronically. Number of Addenda: 0 Note Initiated On: 01/29/2025 10:04 AM
--- NOTE | 2025-01-29 10:46 | OP.CCLET_ITS ---
01/29/2025 Bar Shi [address] [place] [address] Re : Colonoscopy procedure for Demar Menon Dear Dr. Shi This procedure was performed on January. My impressions and recommendations are as follows: Impressions : - One 5 mm polyp in the sigmoid colon, removed with a jumbo cold forceps. Resected and retrieved. - One 2 mm polyp in the transverse colon, removed with a jumbo cold forceps. Resected and retrieved. Recommendations : - Await pathology results. - Repeat colonoscopy in 5 years for surveillance. - Continue present medications. My findings are described in the full procedure note, which is enclosed. If I can be of further assistance, please feel free to contact me at . Sincerely, Iker Metz, 01/29/2025 10:46:20 AM This report has been signed electronically.
--- NOTE | 2025-01-29 13:26 | PCM.POSTANE2 ---
Anesthesia Postop Eval I Sum Postop Eval Completion status Anesthesia document: Postop Eval 1 completed: Yes Anesthesia Postop Eval I Summary Anesthesia Postop Eval I Summary: Anesthesia Postop Eval I: Assessment Summary Airway patent Yes 01/29/25 10:34 [email or web address] Spontaneous unlabored Yes 01/29/25 10:34 [email or web address] respirations Mental status Awake,Calm 01/29/25 10:34 [email or web address] nausea No 01/29/25 10:34 [email or web address] Vomiting No 01/29/25 10:34 [email or web address] Anesthesia Postop Eval I: Fluid Summary Crystalloid volume administer 800 01/29/25 10:34 [email or web address] (ml) Colloids volume administered ( ml) Blood Product volume administered (ml) Total IV fluid infused 800 01/29/25 10:34 [email or web address] Anesthesia Postop Eval I: Summary Notes Anesthesia Complication No 01/29/25 10:34 [email or web address] Anesthesia Complication Comment: Post-operative progress note Anesthesia: Postop Eval II Evaluation Mental status: Awake Pain Level: 0 nausea: No Vomiting: No Complications Anesthesia Complication: No
== END 2025-01-29 11:41 | disposition home or self-care (01) ==
LOC: EN 08:56 → AC 08:57
PROVIDERS: PCP Family Medicine; Referring Provider Family Medicine; Visit Provider Internal Medicine Gastroenterology
PROC: 0DJD8ZZ Inspection of Lower Intestinal Tract, Via Natural or Artificial Opening Endoscopic (ICD-10-PCS; CPT 45378; principal; 2025-01-29 09:55)
DX: K29.50 Unspecified chronic gastritis without bleeding (principal); J44.9 Chronic obstructive pulmonary disease, unspecified; I48.91 Unspecified atrial fibrillation; K31.811 Angiodysplasia of stomach and duodenum with bleeding; K63.5 Polyp of colon; Z79.01 Long term (current) use of anticoagulants; Z87.891 Personal history of nicotine dependence; K21.00 Gastro-esophageal reflux disease with esophagitis, without bleeding; R31.9 Hematuria, unspecified; R10.2 Pelvic and perineal pain; K29.80 Duodenitis without bleeding; Z79.899 Other long term (current) drug therapy; K57.30 Diverticulosis of large intestine without perforation or abscess without bleeding; R10.11 Right upper quadrant pain; I10 Essential (primary) hypertension; D12.5 Benign neoplasm of sigmoid colon
CPT/HCPCS: 43255; 45380; 43239; 43248; 88305; C1889; C1769; J2405

== ENCOUNTER → 2025-02-18 | Outpatient (CLI) | payer MEDICARE, SELFPAY ==
[2025-02-18 12:12] LABS: Hematocrit 42.4 % (40-54); Hemoglobin 13.2 g/dL (13.0-16.5); Immature Granulocytes Count 0.020 X10^3/uL (0.0-0.0); Mean Corp Hgb Conc 31.1 g/dL (32-36); Mean Corpuscular Volume 88.3 fL (80-94); Mean Platelet Vol. 11.8 fl (6.2-12.0); NRBC Flagged by Analyzer 0 % (0-5); Platelet Count 153 K/mm3 (150-450); RBC Distribution Width CV 16.8 % (11.6-14.6); RBC Distribution Width SD 54.4 fl (35.1-43.9); Red Blood Count 4.80 M/mm3 (4.6-6.2); White Blood Count 7.3 K/mm3 (4.4-11.0)
== END | disposition home or self-care (01) ==
PROVIDERS: PCP Family Medicine; Referring Provider Nurse Practitioner Acute Care; Visit Provider Nurse Practitioner Acute Care
DX: D64.9 Anemia, unspecified (principal)
CPT/HCPCS: 36415; 85025

== ENCOUNTER → 2025-03-20 | Outpatient (CLI) | payer MEDICARE, SELFPAY ==
[2025-03-20 17:49] LABS: Hematocrit 39.6 % (40-54); Hemoglobin 12.6 g/dL (13.0-16.5); Immature Granulocytes Count 0.030 X10^3/uL (0.0-0.0); Mean Corp Hgb Conc 31.8 g/dL (32-36); Mean Corpuscular Volume 87.6 fL (80-94); Mean Platelet Vol. 12.3 fl (6.2-12.0); NRBC Flagged by Analyzer 0 % (0-5); Platelet Count 167 K/mm3 (150-450); RBC Distribution Width CV 16.5 % (11.6-14.6); RBC Distribution Width SD 53.1 fl (35.1-43.9); Red Blood Count 4.52 M/mm3 (4.6-6.2); White Blood Count 8.9 K/mm3 (4.4-11.0)
[2025-03-20 18:15] LABS: AST(SGOT) 19 U/L (<=37); Alanine Aminotransfer ALT/SGPT 14 U/L (<=46); Albumin, Serum 4.2 g/dL (3.4-4.8); Alkaline Phosphatase 53 U/L (40-129); Anion Gap 13 (5-15); BUN 18 mg/dL (4-19); BUN/Creat Ratio 17.4 RATIO (10-20); Calcium,Total 9.5 mg/dL (7.6-11.0); Carbon Dioxide 23.6 mmol/L (21.0-32.0); Chloride 107 mmol/L (98-108); Globulin 2.2 g/dL (2.2-4.2); Glucose 112 mg/dL (70-99); Potassium 3.6 mmol/L (3.3-5.1)
== END | disposition home or self-care (01) ==
LOC: MFPLAB 16:17
PROVIDERS: PCP Family Medicine; Referring Provider Family Medicine; Visit Provider Family Medicine
DX: Z01.818 Encounter for other preprocedural examination (principal)
CPT/HCPCS: 36415; 80053; 85025

== ENCOUNTER → 2025-03-26 | Outpatient (CLI) | payer MEDICARE, SELFPAY ==
--- NOTE | 2025-03-26 16:30 | RAD_ITS ---
PROCEDURE: CHEST PA AND LATERAL 03/26/2025 REASON FOR EXAM: PRE PROCEDURE WASC TECHNIQUE: CHEST PA AND LATERAL COMPARISON: 04/16/2018 FINDINGS: LUNGS AND PLEURA: Emphysematous lung changes. No focal airspace consolidation. No pleural effusion or pneumothorax. HEART AND MEDIASTINUM: The heart size and mediastinal contours are normal. BONES: No acute osseous abnormality. RAD/Chest PA and Lateral IMPRESSION: NO ACUTE FINDINGS. Reading Location: [id number]
== END | disposition home or self-care (01) ==
LOC: RAD 16:29
PROVIDERS: PCP Family Medicine; Referring Provider Family Medicine; Visit Provider Family Medicine
DX: Z01.818 Encounter for other preprocedural examination (principal)
CPT/HCPCS: 71046